=== PATIENT | female | born 1990 | race Caucasian/White ===

== ENCOUNTER 2025-04-01 10:42 | Outpatient (AMB) | payer OTHER, SELFPAY ==
--- OUTSIDE RECORDS SUMMARY | 2025-01-01 11:30 | XMS_ITS ---
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 Name Role Phone RON DAHL Unavailable [phone] HUSAM SHARMA Unavailable [phone] REASON FOR VISIT 2 month f/u knee & neck pain Encounters Encounter Location Date Provider Diagnosis [facility] [address] [place] [address] 01/01/2025 HUSAM SHARMA Plan Of Treatment Next Appt Details Provider Name:HUSAM ZACHARY, 04/20/2025 01:00:00 PM, [address] , [place], [address], Progress Notes * CRUZJone BASSETTalyssiaDOB:1989 (34 yo F)Acc No.[id number]:01/01/2025 Progress Notes Patient: Kamilla MIRAMONTES Provider: Tiffany VILLELA PA-C :1990 A ge:34 Y S ex:Female Date:01/01/2025 Address:[address] [place] [id number] Subjective: * Chief Complaints: * 1 . 2 month f/u knee & neck pain. * Medical History: Objective: * Vitals: Assessment: Plan: * Treatment: * Images: Billing Information: * Visit Code: * Procedure Codes: Care Plan Details* * Electronic signature of APPLE SHARMA PA-C on 04/01/2025 at 12:14 PM EDT Sign off status: Pending * Provider: Tiffany VILLELA PA-C Date: 0 01/01/2025 Generated for Tom fernandes/Alirio/Kofi on: 0 04/01/2025 12:14 PM EDT
--- NOTE | 2025-04-01 10:47 | MHC.OFFVIS ---
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 Patient contacted her PCP requesting to be referred to orthopedics for right knee pain and discomfort. Patient reports her pain has been present for about 4-5 years. She has attended PT about 2 years ago and is currently attending PT. Her pain is often located at the anterior/lateral side of her knee and at times the posterior aspect. Her pain presents with activities. No other treatment. 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 She states the pain is located on the lateral and anterior portion of the knee but also posteriorly. She states she used to be into running and she feels that there was some discomfort with running. She has also been working with a physical therapist who has been working on strengthening conditioning exercises. 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 Mild discomfort along ITB band. ROM full with crepitus. Negative steinmans. No ligamentous laxity. NVI. Assessment & Plan Assessment & Plan (1) Patellofemoral syndrome of right knee: Code(s): M22.2X1 - Patellofemoral disorders, right knee Category: Medical Plan: I discussed with the patient the benefits of continuing with the strengthening conditioning program she is currently working on. I feel as though we can get her back to running however with this being a 1 legged high impact sport it is important that she works on posterior chain strengthening and glute stabilizing exercises. If symptoms persist or there is any concerns she can contact our office otherwise follow up as needed. Coding Level of Care Code New Pt Level 3 (30782) Complex EM visit Add On G2211 Diagnoses Patellofemoral syndrome of right knee M22.2X1
[2025-04-01 10:51] VITALS: BMI 30.2
== END 2025-04-01 11:15 | disposition home or self-care (01) ==
LOC: HO.HOS 10:42
PROVIDERS: PCP Internal Medicine; Visit Provider Physician Assistant
DX: M22.2X1 Patellofemoral disorders, right knee (principal)
CPT/HCPCS: 99203; G2211

== ENCOUNTER 2025-04-01 12:47 | Outpatient (REF) | payer OTHER, SELFPAY ==
--- OUTSIDE RECORDS SUMMARY | 2025-01-01 11:30 | XMS_ITS ---
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 Role Phone RON DAHL Unavailable [phone] HUSAM SHARMA Unavailable [phone] REASON FOR VISIT 2 month f/u knee & neck pain Encounters Encounter Location Date Provider Diagnosis [facility] [address] [place] [address] 01/01/2025 HUSAM SHARMA Plan Of Treatment Next Appt Details Provider Name:HUSAM ZACHARY, 04/20/2025 01:00:00 PM, [address] , [place], [address], Progress Notes * CRUZShawna BASSETTlolitaDOB:1989 (34 yo F)Acc No.[id number]:01/01/2025 Progress Notes Patient: Kamilla MIRAMONTES Provider: Tiffany VILLELA PA-C :1990 A ge:34 Y S ex:Female Date:01/01/2025 Address:[address] [place] [id number] Subjective: * Chief Complaints: * 1 . 2 month f/u knee & neck pain. * Medical History: Objective: * Vitals: Assessment: Plan: * Treatment: * Images: Billing Information: * Visit Code: * Procedure Codes: Care Plan Details* * Electronic signature of APPLE SHARMA PA-C on 04/02/2025 at 01:51 PM EDT Sign off status: Pending * Provider: Tiffany VILLELA PA-C Date: 0 01/01/2025 Generated for Tom fernandes/Alirio/Kofi on: 0 04/02/2025 01:51 PM EDT
== END 2025-04-01 12:48 | disposition home or self-care (01) ==
LOC: HO.HOSX 12:47
PROVIDERS: Visit Provider Physician Assistant
DX: Z13.89 Encounter for screening for other disorder (principal)